=== PATIENT | male | born 1955 | race African-American/Black ===

== ENCOUNTER 2024-12-23 15:52 | Outpatient (CLI) | payer BC, MEDICARE ==
--- NOTE | 2024-12-27 12:19 | DVHSR ---
APPROVED REPORT EXAM: LIMITED Two-dimensional and M-mode echocardiogram. DIMENSIONS LVDd4.6 (3.8-5.7cm)LA (2D)4.0 (1.9-4.0cm)Aortic Root (2.0-3.7cm) LVDs3.5 (2.5-4.0cm)LA (MM) (1.9-4.0cm)Aortic Cusp Exc (1.5-2.0cm) EF (%) 50.0 (55-70%)Rt. Atrium3.4 (1.9-4.0cm)Asc. Aorta cm IVSd1.1 (0.7-1.1cm)RV (D) (1.8-2.4cm) PWd0.8 (0.7-1.1cm) Mitral Valve MitralMitral Stenosis E/A ratio0.02D MVAcm2 Aortic Valve Aortic ValveAortic Stenosis LVOT Diameter2.6 (1.8-2.4cm)Doppler AVAcm2 LEFT VENTRICLE The left ventricle is normal size. The left ventricle is normal in structure and function. The Ejection Fraction is within normal limits. RIGHT VENTRICLE The right ventricle appears normal size. ATRIA The left atrium appears normal in size. The right atrium appears normal in size. The interatrial septum is intact with no evidence for an atrial septal defect. MITRAL VALVE The mitral valve appears normal in structure and function. PULMONIC VALVE The pulmonic valve is not well visualized. TRICUSPID VALVE The tricuspid valve is not well visualized. AORTIC VALVE The aortic valve appears to open well. GREAT VESSELS The aortic root is normal size. PERICARDIAL EFFUSION There is no pericardial effusion. Other Information Quality : Technically LimitedRhythm : Technically limited study due to body habitus. Conclusion EF >55%
== END 2024-12-23 17:00 | disposition home or self-care (01) ==
LOC: Rad HDHVI 15:52
PROVIDERS: ATTEND Internal Medicine Cardiovascular Disease
DX: I10 Essential (primary) hypertension (principal)
CPT/HCPCS: 93306

== ENCOUNTER 2024-12-27 08:07 | Outpatient (CLI) | payer BC, MEDICARE ==
[~2024-12-27] VITALS: Ht 188 cm; Wt 72.6 kg
[2024-12-28] MEDS ORDERED: IBUP-1454 PO (10:23)
[2024-12-28] MEDS ORDERED: SIMV40TA18 PO (10:23)
[2024-12-28] MEDS ORDERED: ASPI-543 PO (10:23)
[2024-12-28] MEDS ORDERED: TAMS0.4C39 PO (10:26)
[2024-12-28] MEDS ORDERED: CINN500C7 PO (10:30)
[2024-12-28] MEDS ORDERED: HYDR25TA4 PO (10:30)
== END 2024-12-27 17:00 | disposition home or self-care (01) ==
LOC: Rad HDHVI 08:07
PROVIDERS: ATTEND Internal Medicine Cardiovascular Disease
DX: I49.1 Atrial premature depolarization (principal); I49.3 Ventricular premature depolarization; R00.0 Tachycardia, unspecified; R94.31 Abnormal electrocardiogram [ECG] [EKG]; I10 Essential (primary) hypertension; E11.9 Type 2 diabetes mellitus without complications; E78.00 Pure hypercholesterolemia, unspecified; I69.30 Unspecified sequelae of cerebral infarction; Z13.6 Encounter for screening for cardiovascular disorders; F17.210 Nicotine dependence, cigarettes, uncomplicated; Z82.49 Family history of ischemic heart disease and other diseases of the circulatory system
CPT/HCPCS: 78452; 93017; A9500; 96374

== ENCOUNTER 2024-12-28 08:56 | Outpatient (CLI) | payer BC, MEDICARE ==
[2024-12-28 09:06] VITALS: BP 138/65; PULSE 79; RESP 16; O2SAT 96
[2024-12-28 09:21] VITALS: BP 138/68; PULSE 80; RESP 16; O2SAT 97
[2024-12-28] MEDS ORDERED: ASPI-543 PO (10:23)
[2024-12-28] MEDS ORDERED: IBUP-1454 PO (10:23)
[2024-12-28] MEDS ORDERED: SIMV40TA18 PO (10:23)
[2024-12-28] MEDS ORDERED: TAMS0.4C39 PO (10:26)
[2024-12-28] MEDS ORDERED: HYDR25TA4 PO (10:30)
[2024-12-28] MEDS ORDERED: CINN500C7 PO (10:30)
--- NOTE | 2024-12-28 12:39 | DVH ---
XY CHEST TWO VIEWS ROUTINE CLINICAL HISTORY: PRE OP/pain COMPARISON: None TECHNIQUE: Frontal and lateral view of the chest was obtained FINDINGS: Lines and Tubes: None Lungs: No focal consolidation. Pleura: No effusion. No pneumothorax. Cardiomediastinal contours: Unremarkable Bones: No acute osseous abnormality. IMPRESSION: No acute cardiopulmonary disease.
== END 2024-12-28 17:00 | disposition home or self-care (01) ==
LOC: Rad HDHVI 08:56
PROVIDERS: ATTEND Internal Medicine Cardiovascular Disease
DX: Z01.818 Encounter for other preprocedural examination (principal); R55 Syncope and collapse
CPT/HCPCS: 71046; 93005; G0463

== ENCOUNTER 2024-12-29 08:21 | Day surgery (SDC) | payer BC, MEDICARE ==
[2024-12-28 11:10] LABS: Hematocrit 42.8 % (41.0-53.0); Hemoglobin 14.2 g/dL (13.5-17.5); Mean Corpuscular Hemoglobin 29.4 pg (28.0-32.0); Mean Corpuscular Volume 88.8 fL (80.0-100.0); Nucleated Red Blood Cells % 0.0 %
[2024-12-28 11:26] LABS: Chloride 101 mmol/L (98-107); Potassium 3.8 mmol/L (3.5-5.1); Sodium 141 mmol/L (136-145)
[2024-12-28 11:28] LABS: Calcium 10.1 mg/dL (8.7-10.4)
[2024-12-28 11:33] LABS: BUN/Creatinine Ratio 16.0 (10.0-20.0); Blood Urea Nitrogen 15 mg/dL (9-23)
[2024-12-28 11:35] LABS: Carbon Dioxide 33 mmol/L (20-31)
[2024-12-28 11:36] LABS: Anion Gap 7 (5-15)
[2024-12-28 11:49] LABS: INR 1.08 (0.9-1.15); Partial Thromboplastin Time 24.8 SEC (24.5-34.5); Prothrombin Time 11.4 sec (9.3-11.8)
[2024-12-28 12:12] LABS: Glucose 97 mg/dL (74-106)
[~2024-12-29] VITALS: Ht 185.4 cm; Wt 72.6 kg
[~2024-12-29 08:21] MED LIST: ASPI-543 PO; CINN500C7 PO; HYDR25TA4 PO; IBUP-1454 PO; SIMV40TA18 PO; TAMS0.4C39 PO
[2024-12-29] MEDS ORDERED: LIDOCAINE 2%HCL (LOCAL ANESTH.) INJ 20ML MDV ONE (12:39)
[2024-12-29] MEDS ORDERED: fentaNYL CITRATE 100 MCG/2 ML VL ONE (12:39)
[2024-12-29] MEDS ORDERED: MIDAZOLAM HCL 2MG/2ML 2ml VIAL (1mg/ml) ONE (12:39)
[2024-12-29 13:02] VITALS: BP 168/99; PULSE 68; RESP 13; TEMP 98.1; O2SAT 94
--- NOTE | 2024-12-29 13:19 | DVHHP ---
ADMIT DATE: 12/29/2024 HISTORY OF PRESENT ILLNESS: The patient who is 69 years old with syncopal episode. The patient was outside the state when he developed severe syncope and the patient was seen and was found to be bradycardic. Therefore, it was advised that the patient should get a loop record. He had telemetry followup in the past. Telemonitors were placed, but they were not able to capture any event. When the telemonitors were placed, the patient was completely asymptomatic. PAST MEDICAL HISTORY: Significant for hypertension. SOCIAL HISTORY: Remote history of tobacco use. He vapes at this time. REVIEW OF SYSTEMS: He denies any fever, chills, melena, hematochezia, hematemesis or hemoptysis. He denies any seizure disorder. Denies any head trauma. Denies any CVA in the past. No irritable bowel syndrome or inflammatory bowel disease. No history of any movement disorder as well. He does have mild COPD. The patient, because of the above symptoms of syncope, is now to undergo loop recorder implantation. Risks and benefits were explained to the patient. PROCEDURE: The patient was prepped and draped in sterile condition. 1% Xylocaine was used to anesthetize the left chest wall. Then, an incision was made about 1 cm in length at the fourth and fifth intercostal space. Following that, a Biotronik loop recorder is to be inserted. CONCLUSION: The patient with a syncopal episode, now to undergo loop recorder because the patient is having syncopal episode and has not had any evidence for tachy or bradyarrhythmia by telemonitoring. Byron Floyd MD SA/YADI TID: [id number] RECEIPT: [id number]
[2024-12-29 13:30] VITALS: BP 161/83; PULSE 66; RESP 18; O2SAT 96
--- NOTE | 2024-12-29 13:43 | DVHDS ---
DATE OF DISCHARGE: 12/29/2024 HOSPITAL COURSE: The patient underwent successful implantation of a loop recorder Biotronik MRI compatible system for recurrent syncope. Risks and benefits were explained to the patient. The patient will be put on antibiotic therapy for 1 week and routine body hygiene will be used. I will see the patient in approximately 1 week at which time I will remove the herminia that were placed on the patient. Stable at the time of discharge. DISPOSITION: Home. ACTIVITIES: As instructed. DIET: Will be 2 g sodium diet. Byron Floyd MD SA/JOSE ALEJANDRO TID: [id number] RECEIPT: [id number]
--- NOTE | 2024-12-29 13:54 | DVHOP ---
DATE OF SURGERY: 12/29/2024 PROCEDURE TO BE PERFORMED: Loop recorder insertion. DESCRIPTION OF PROCEDURE: The patient was prepped and draped in sterile condition over the left chest wall. On the fourth and fifth intercostal space, a linear incision was made. Using a hemostat, we were able to put a track along the medial aspect of the left chest. Following that, the introducer for the loop recorder was then inserted into the track that has been created and deployment protocol was then performed. There were no complications. The patient tolerated the procedure well. RESULTS: The patient has a Biotronik loop recorder inserted. It is a Biomonitor IV model number [id number], serial number [id number]. R-wave amplitude of 0.45 millivolts. CONCLUSION: The patient had successful implantation of Biotronik MRI compatible loop recorder. Byron Floyd MD SA/JOSE ALEJANDRO/SIVAKUMAR TID: [id number] RECEIPT: [id number]
[2024-12-29 14:00] VITALS: BP 148/72; PULSE 70; RESP 18; O2SAT 97
[2024-12-29 14:15] VITALS: BP 154/78; PULSE 71; RESP 18; O2SAT 96
== END 2024-12-29 14:50 | disposition home or self-care (01) ==
LOC: CATH 08:21
PROVIDERS: ATTEND Internal Medicine Cardiovascular Disease
DX: R55 Syncope and collapse (principal); R00.1 Bradycardia, unspecified; R47.1 Dysarthria and anarthria; R79.1 Abnormal coagulation profile; F17.290 Nicotine dependence, other tobacco product, uncomplicated; I10 Essential (primary) hypertension; Z79.899 Other long term (current) drug therapy; Z98.890 Other specified postprocedural states
CPT/HCPCS: 33285; 36415; 80048; 85025; 85610; 85730; C1764; J7030; 99152; J2250

== ENCOUNTER 2025-04-19 13:08 | Outpatient (CLI) | payer BC | END 2025-04-19 17:00 | disposition home or self-care (01) | LOC: Rad HDHVI 13:08 | PROVIDERS: ATTEND Internal Medicine Cardiovascular Disease | DX: I10 Essential (primary) hypertension (principal); I69.30 Unspecified sequelae of cerebral infarction | CPT/HCPCS: 93880 ==